=== PATIENT | female | born 1945 | race Caucasian/White ===

== ENCOUNTER → 2016-04-05 | Outpatient (CLI) | payer OTHER ==
--- NOTE | 2016-04-05 08:21 | US ---
EXAMINATION TYPE: US abdomen complete DATE OF EXAM: 04/05/2016 8:06 AM COMPARISON: NONE CLINICAL HISTORY: 70 year-old female, evaluate K83.1 Obstruction of bile duct. Patient states diarrhe a and elevated triglycerides. TECHNIQUE: Multiple sonographic images of the abdomen were obtained. FINDINGS: EXAM MEASUREMENTS: Liver Length: 14.3 cm Gallbladder Wall: 0.2 cm CBD: 0.5 cm Spleen: 9.7 cm Right Kidney: 9.7 x 3.2 x 3.8 cm Left Kidney: 11.5 x 2.9 x 5.1 cm Pancreas: Suboptimal visualization of the pancreatic tail secondary to shadowing from bowel gas. Vis ualized portions show no gross abnormality. Liver: Slight increased echogenicity. No focal lesion. Gallbladder: No abnormal gallbladder distention, wall thickening, pericholecystic fluid, or shadowin g calculi. Evidence for sonographic Valenzuela's sign: No CBD: Within normal limits. Spleen: Within normal limits. Right Kidney: No hydronephrosis. Left Kidney: No hydronephrosis. Upper IVC: Within normal limits. Abd Aorta: Within normal limits. IMPRESSION: 1. Slight increased echogenicity of the liver. Correlate with LFTs, lipid profile, and patient risk f actors to exclude mild hepatic steatosis. 2. Normal caliber bile duct.
== END | disposition home or self-care (01) ==
LOC: RADUSWWP 07:42
PROVIDERS: ATTEND Family Medicine
DX: R93.2 Abnormal findings on diagnostic imaging of liver and biliary tract (principal)
CPT/HCPCS: 76700

== ENCOUNTER → 2017-04-21 | Outpatient (CLI) | payer MEDICARE ==
--- NOTE | 2017-04-25 09:12 | MM ---
Reason for exam: screening (asymptomatic). Last mammogram was performed 1 year and 7 months ago. History: Patient is postmenopausal and is nulliparous. Physical Findings: A clinical breast exam by your physician is recommended on an annual basis and results should be correlated with mammographic findings. MG 3D Screening Mammo W/Cad Bilateral CC and MLO view(s) were taken. Prior study comparison: September 24, 2015, bilateral MG diagnostic mammo w CAD REGI. The breast tissue is heterogeneously dense. This may lower the sensitivity of mammography. Stable regional calcifications in the right breast. No significant changes when compared with prior studies. ASSESSMENT: Negative, BI-RAD 1 RECOMMENDATION: Routine screening mammogram of both breasts in 1 year.
== END | disposition home or self-care (01) ==
LOC: RADMAMWWP 07:32
PROVIDERS: ATTEND Family Medicine
DX: Z12.31 Encounter for screening mammogram for malignant neoplasm of breast (principal)
CPT/HCPCS: 77063; 77067

== ENCOUNTER → 2018-07-19 | Outpatient (CLI) | payer MEDICARE ==
[2018-07-19 11:01] LABS: Basophils % (A) 1 %; Eosinophils # (A) 0.1 k/uL (0-0.7); Eosinophils % (A) 3 %; HCT 39.6 % (34.0-46.0); HGB 13.1 gm/dL (11.4-16.0); Lymphocytes # (A) 0.9 k/uL (1.0-4.8); Lymphocytes % (A) 27 %; MCH 31.4 pg (25.0-35.0); MCV 95.2 fL (80.0-100.0); Mean Platelet Volume 7.6; Monocytes # (A) 0.2 k/uL (0-1.0); Monocytes % (A) 6 %; Neutrophils % (A) 61 %; Platelet Count 209 k/uL (150-450); RBC 4.16 m/uL (3.80-5.40); RDW 13.3 % (11.5-15.5); WBC 3.3 k/uL (3.8-10.6)
[2018-07-19 16:58] LABS: Albumin/Globulin Ratio 2.22 (1.60-3.17); Anion Gap 8.3 mmol/L (4.00-12.00); Carbon Dioxide 27.7 mmol/L (21.6-31.8); Globulin 1.8 g/dL (1.6-3.3); LDL Cholesterol,Calculated 51.8 mg/dL (0.0-131.0); Magnesium 2.2 mg/dL (1.5-2.4); Potassium 4.2 mmol/L (3.5-5.5); Total Bilirubin 0.5 mg/dL (0.3-1.2); Total Protein 5.8 g/dL (6.2-8.2); VLDL Calculation 28.2 mg/dL (5.00-40.00)
== END ==
LOC: LABWHC1 10:05
PROVIDERS: ATTEND Internal Medicine Cardiovascular Disease
DX: I10 Essential (primary) hypertension (principal); Z13.220 Encounter for screening for lipoid disorders
CPT/HCPCS: 36415; 80053; 80061; 83735; 85025

== ENCOUNTER → 2020-08-07 | Outpatient (CLI) | payer MEDICARE ==
[~2020-08-07] MED LIST: SODIUM CHLORIDE 0.9% 500 ML 500 ML in EMPTY BAG 1 BAG IV PRN; ZOLEDRONIC ACID 5 MG in SODIUM CHLORIDE 0.9% 100 ML IV NR
[2020-08-07 09:35] VITALS: BP 165/75; PULSE 90; RESP 16; TEMP 98.1
== END ==
LOC: PROCWHC3 09:21
PROVIDERS: ATTEND Family Medicine
DX: M81.0 Age-related osteoporosis without current pathological fracture (principal); Z88.0 Allergy status to penicillin; Z91.048 Other nonmedicinal substance allergy status
CPT/HCPCS: 96365; J3489

== ENCOUNTER → 2021-10-19 | Outpatient (CLI) | payer MEDICARE ==
[2021-10-19 10:03] VITALS: BP 143/70; PULSE 80; RESP 16; TEMP 98.1
== END ==
LOC: PROCWHC3 09:52
PROVIDERS: ATTEND Family Medicine
DX: M81.0 Age-related osteoporosis without current pathological fracture (principal); Z88.0 Allergy status to penicillin; Z91.09 Other allergy status, other than to drugs and biological substances
CPT/HCPCS: 96365; J3489

== ENCOUNTER 2022-09-14 09:34 | Day surgery (SDC) | payer MEDICARE ==
[~2022-09-14 09:34] MED LIST changes: +LACTATED RINGERS 1,000 ML IV SCH; +LIDOCAINE 1% (10MG/ML) FOR IV START INTRADERMA PRN; -SODIUM CHLORIDE 0.9% 500 ML 500 ML in EMPTY BAG 1 BAG IV PRN; -ZOLEDRONIC ACID 5 MG in SODIUM CHLORIDE 0.9% 100 ML IV NR
[2022-09-14 09:51] VITALS: TEMP 98.1
[2022-09-14] MEDS ORDERED: PROPOFOL 10 MG/ML 20 ML VIAL IV ONE (10:31)
--- NOTE | 2022-09-14 10:40 | P.GSHP ---
History of Present Illness H&P Date: 09/14/22 Chief Complaint: Abnormal stool test 77-year-old female here today for colonoscopy. Denies rectal bleeding or melena. No bowel complaints. Recent stool test was abnormal. No family history of colon cancer. 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 With brain surgery she had issues with htn in recovery. Smoking Status: Never smoker - Past Family History Father Family Medical History: Cancer Additional Family Medical History / Comment(s): Father lived to 90yrs. Mother Family Medical History: Hypertension Medications and Allergies Home Medications Medication Instructions Recorded Confirmed Type Aspirin 162 mg PO HS 06/09/15 09/08/22 History Atorvastatin [Lipitor] 40 mg PO HS 06/09/15 09/08/22 History Cholecalciferol [Vitamin D3] 5,000 unit PO QAM 06/09/15 09/08/22 History Ferrous Sulfate [Feosol] 325 mg PO QAM 06/09/15 09/08/22 History Glucosamine-Chondr 500-400Mg 1 tab PO Q12HR 06/09/15 09/08/22 History Loratadine [Claritin] 10 mg PO HS 06/09/15 09/14/22 History Multivitamins, Thera [Multivitamin] 1 tab PO QAM 06/09/15 09/14/22 History Ubidecarenone [Co Q-10] 200 mg PO QAM 06/09/15 09/14/22 History Famotidine 40 mg PO QAM 09/08/22 09/14/22 History Losartan Potassium 100 mg PO HS 09/08/22 09/14/22 History Montelukast [Singulair] 10 mg PO QAM 09/08/22 09/14/22 History Verapamil Sr [Isoptin Sr] 120 mg PO HS 09/08/22 09/14/22 History Verapamil Sr [Isoptin Sr] 240 mg PO QAM 09/08/22 09/14/22 History Vitamin K2 150 mcg PO QAM 09/08/22 09/08/22 History Allergies Allergy/AdvReac Type Severity Reaction Status Date / Time coconut Allergy congestion Verified 09/14/22 09:48 mold Allergy congestion Verified 09/14/22 09:48 Penicillins Allergy Unknown Verified 09/14/22 09:48 Surgical - Exam Vital Signs Temp Pulse Resp BP Pulse Ox 98.1 F 92 20 155/81 95 09/14/22 09:50 09/14/22 09:50 09/14/22 09:50 09/14/22 09:50 09/14/22 09:50 Physical exam: General: Well-developed, well-nourished HEENT: Normocephalic, sclerae nonicteric Abdomen: Nontender, nondistended Extremities: No edema Neuro: Alert and oriented Assessment and Plan (1) Abnormal stool test Narrative/Plan: Will proceed with colonoscopy at this time. Current Visit: Yes Status: Acute Code(s): R19.5 - OTHER FECAL ABNORMALITIES SNOMED Code(s): 820391156
--- NOTE | 2022-09-14 11:01 | P.PCN ---
Date of Procedure: 09/14/22 Procedure(s) Performed: PREOPERATIVE DIAGNOSIS: Abnormal stool test POSTOPERATIVE DIAGNOSIS: Cecal polyp, diverticulosis PROCEDURE: Colonoscopy with snare polypectomy and clip placement ANESTHESIA: MAC SURGEON: Carlos Loomis M.D. SPECIMENS: Cecal polyp ENDOSCOPIC PROCEDURE: The patient was placed on the endoscopy table in the left decubitus position. The Olympus colonoscope was inserted into the anus and passed under direct visualization to the base of the cecum. The appendiceal orifice was visualized. From that point the scope was slowly withdrawn inspecting all surfaces carefully. At the base of the cecum there was noted to be a small pedunculated polyp measuring about 5 mm. This appeared indurated. This was removed using the snare with cautery technique. After removal that site was noted to ooze a little bit. A clip was deployed and no further bleeding was seen. The remainder of the cecum and ascending transverse descending sigmoid and rectum appeared normal. There was mild left-sided diverticulosis. Digital rectal examination was normal. The patient was taken to the recovery room in stable condition per anesthesia guidelines. RECOMMENDATIONS: Await biopsy results. Will contact patient with timing of the next colonoscopy. Monitor for bleeding.
[2022-09-14 11:08] VITALS: RESP 16
[2022-09-14 11:26] VITALS: BP 121/65; PULSE 75
== END 2022-09-14 11:55 | disposition home or self-care (01) ==
LOC: ORWHC2ENDO 09:34
PROVIDERS: ATTEND Surgery
DX: K63.5 Polyp of colon (principal); Z80.0 Family history of malignant neoplasm of digestive organs; I10 Essential (primary) hypertension; E78.5 Hyperlipidemia, unspecified; K21.9 Gastro-esophageal reflux disease without esophagitis; M19.90 Unspecified osteoarthritis, unspecified site; Z79.82 Long term (current) use of aspirin; Z79.899 Other long term (current) drug therapy; Z88.0 Allergy status to penicillin; Z88.8 Allergy status to other drugs, medicaments and biological substances; Z91.018 Allergy to other foods
CPT/HCPCS: 88305; 45382; 45385; J2704

== ENCOUNTER → 2023-04-01 | Day surgery (SDC) | payer MEDICARE ==
[2023-03-30 09:04] VITALS: BMI 27.1
[~2023-04-01] MED LIST changes: +DEXAMETHASONE SOD PHOSPHATE 4 MG/ML 1 ML VIAL IV ONE; +DEXAMETHASONE SOD PHOSPHATE 4 MG/ML 1 ML VIAL IVP ONE; +DEXAMETHASONE SOD PHOSPHATE 4 MG/ML 1 ML VIAL ONE; +HYDROmorphone (PF) 1 MG/ML ONE; +HYDROmorphone 0.5 MG/0.5 ML SYRINGE IVP PRN; +LIDOCAINE 1% INJ 10MG/ML (20 ML MDV) ONE; +MIDAZOLAM 2 MG/2 ML VIAL IV PRN; +MIDAZOLAM 2 MG/2 ML VIAL IVP ONE; +ONDANSETRON 4 MG/2 ML VIAL IVP ONE; +PHENYLEPHRINE-0.9% NACL SYG 1,000 MCG/10 ML SYRINGE ONE; +PROPOFOL 10 MG/ML 20 ML VIAL IV ONE; +ROPIVACAINE 5 MG/ML 30 ML VIAL ONE; +SODIUM CHLORIDE 0.9% (PF) 10 ML VIAL ONE; +ceFAZolin 1,000 MG in SODIUM CHLORIDE 0.9% 1,000 ML IRRIGATION ONE; +fentaNYL (PF) 50 MCG/1 ML VIAL IVP ONE; +fentaNYL (PF) 50 MCG/ML 2 ML AMP ONE
[2023-04-01 09:34] VITALS: TEMP 97.2
--- NOTE | 2023-04-01 10:35 | P.ANPRN ---
Procedure Note - Anesthesia - Nerve Block Performed Right Adductor Canal Single Time Out Performed: Yes Date of Procedure: 04/01/23 Procedure Start Time: :37 Procedure Stop Time: :43 Location of Patient: PreOp Indication: Acute Post-Operative Pain, Requested by Surgeon Sedation Type: Sedate with meaningful contact maintained Preparation: Sterile Prep Position: Supine Needle Types: Pajunk Needle Gauge: 21 Ultrasound used to visualize needle placement: Yes Ultrasound used to observe medication spread: Yes Injectate: 0.5% Ropivacaine (see comment for volume) (20 ml + 10 ml NS + 4 mg Dexamethasone) Blood Aspirated: No Pain Paresthesia on Injection Noted: No Resistance on Injection: Normal Image Stored and Saved: Yes Events: Uneventful and Well Tolerated
--- NOTE | 2023-04-01 13:13 | P.OP ---
Date of Procedure: 04/01/23 Preoperative Diagnosis: Displaced bimalleolar fracture right ankle Postoperative Diagnosis: 1. Displaced right bimalleolar ankle fracture 2. Ruptured syndesmosis right ankle Procedure(s) Performed: 1. Open reduction with internal fixation right bimalleolar ankle fracture 2. Open repair of syndesmosis right ankle Implants: Potter precontoured fibular plate with 3.5 locking and nonlocking screws Potter 4.0 partially-threaded cannulated screws Anesthesia: NYDIAA Surgeon: Milton Calles Estimated Blood Loss (ml): 50 Pathology: none sent Condition: stable Disposition: PACU Description of Procedure: Prior to the patient being brought to the operating room, anesthesia administered a nerve block on the right lower extremity. The patient was brought into the operative room and placed on table in supine position. Timeout was taken to confirm correct patient identifiers, correct laterality of surgery, and correct procedure. Once all staff in the room were in agreement with the timeout, the patient was induced and placed under general anesthesia. A well- padded tourniquet was placed on the right thigh and a wedge underneath the right hip to internally rotate the right leg. The right leg was then prepped and draped in usual manner. The leg was exsanguinated with an Esmarch bandage and then the tourniquet was inflated to 250 mmHg. Attention was directed over the lateral malleolus where a straight linear incision was made along the midline. The incision was deepened under the subcutaneous tissue careful to identify, avoid, and retract any neurovascular structures and cauterize any bleeding vessels. Dissection was carried down to level of the periosteum. A linear periosteal incision was madetissues were reflected anteriorly and posteriorly to expose the fracture. The soft tissue and hematoma were evacuated from between the fracture fragments. Bone reduction forceps were utilized to rotate and bring the fracture back into alignment. Once the fracture was aligned was clamped in place. Fluoroscopy confirmed the proper position of the fracture on AP and lateral views. The bone quality of the lateral malleolus is very poor, therefore was not possible to put an interfragmentary screw without further fracturing the cortex of the fibula. With the clamps in place holding the fracture reduction, 2 smooth wires were placed across the fracture to maintain the alignment while the plate was being placed. A Segundo precontoured lateral malleolar plate was then positioned and adjusted under fluoroscopy until it was aligned appropriately. The plate was then temporarily fixated. Locking screws were placed in the most proximal 3 holes of the plate. Distal locking screws were then placed into the lateral malleolus. Drilling for the screws for the distal portion of the lateral malleolus was done under direct fluoroscopic visualization so that the drill bit did not enter the lateral gutter of the ankle joint. The distal screw was a compression screw to contour the plate and the other 2 screws were locking screws. Fluoroscopic imaging showed that the plate was properly aligned and the fracture well reduced. Then attention was directed over the medial malleolus, where a curvilinear incision was made directly over the fracture. The incision was deepened down to the subcutaneous tissue careful to identify, avoid, and retract any neurovascular structures and cauterize any bleeding vessels. Blunt dissection was continued down to the fracture. Aaron was used to remove the incarcerated tissue and hematoma from between the fracture fragments. There is also a small bony fragment within the fracture space that was excised and removed. The area was irrigated thoroughly with antibiotic saline. A bone reduction forceps was used to reduce the fracture. Fluoroscopy confirmed anatomic alignment of the fracture. Next, guidewires for 4.0 mm cannulated screws were placed at the tip of the medial malleolus advanced across the fracture site perpendicular to the fracture line. The orientation the fractures was superior posterior and lateral. AP and lateral views of the wire placed and showed that the wires did not enter the joint space and were properly positioned for maintained fracture reduction. Small stab incisions are made to the skin where the wires entered. 4.0 mm cannulated screws were inserted across the guidewires and advanced until the heads engaged the medial malleolus and provided compression across the fracture. Final fluoroscopic imaging showed proper placement of the screws as well as reduction of the fracture. Under live fluoroscopic visualization external rotation and eversion of the ankle were done to assess the syndesmosis. It was noted that there was excessive motion of the syndesmosis as well as gapping of the medial gutter. The decision was made to use a syndesmotic screw. The proper hole the plate was chosen for the placement of the screw. Drilling was done through 3 cortices then a cortical nonlocking screw was inserted. The screw was tightened with the ankle maximally dorsiflexed. The screw was only tightened until it was firmly against the plate and not overtightened. Stress testing was performed again under fluoroscopy, and it showed that there was no instability of syndesmosis and no abnormal gapping of the medial gutter. The wound is then thoroughly irrigated with antibiotic saline. Deep closure was done with 2-0 Vicryl. Subcu closure was done with 4-0 Monocryl. Skin closure was done with brittany. An Arthrex jumpstart dressing was placed over the incision and then a bulky dry dressings applied to the right ankle. The tourniquet was released and capillary refill return to all digits on the right foot. Then the patient was placed in a well-padded, well molded posterior mold/sugar tong splint. The ankle was held in neutral dorsiflexion and slight inversion as it dried. Once the splint was dried, anesthesia was reversed and the patient was taken recovery with vital signs stable.
--- NOTE | 2023-04-01 13:53 | FL ---
EXAMINATION TYPE: FL guidance operating room, XR ankle limited RT Intraoperative/procedural fluorosco pic services were provided. Total fluoroscopy time is 1 minute 13 seconds with a total of 4 submitted images to PACS. Please see the operative/procedural note for further details. DAP: [id number] [id number]
[2023-04-01 14:00] VITALS: RESP 14
[2023-04-01 14:26] VITALS: BP 163/77; PULSE 73
== END | disposition home or self-care (01) ==
LOC: OR 08:40
PROVIDERS: ATTEND Podiatrist
DX: S82.841A Displaced bimalleolar fracture of right lower leg, initial encounter for closed fracture (principal); G89.18 Other acute postprocedural pain; I10 Essential (primary) hypertension; E78.5 Hyperlipidemia, unspecified; H91.90 Unspecified hearing loss, unspecified ear; M19.90 Unspecified osteoarthritis, unspecified site; J30.1 Allergic rhinitis due to pollen; K21.9 Gastro-esophageal reflux disease without esophagitis; Z77.120 Contact with and (suspected) exposure to mold (toxic); Z91.018 Allergy to other foods; Z88.0 Allergy status to penicillin; Z83.3 Family history of diabetes mellitus; Z98.890 Other specified postprocedural states; Z79.82 Long term (current) use of aspirin; Z79.899 Other long term (current) drug therapy; X58.XXXA Exposure to other specified factors, initial encounter
CPT/HCPCS: 64447; 64445; 73600; 27814; C1713; J2250; J1100; J0690 ×2; J2405; J2001; J3010 ×2; J1170; J2795; J2704; J2371